=== PATIENT | male | born 1995 | race Caucasian/White ===

== ENCOUNTER 2017-05-12 20:12 | Emergency (ER) | payer MEDICAID ==
[2017-05-12 20:20] VITALS: BP 125/78; O2SAT 95
--- NOTE | 2017-05-12 20:33 | EDPHY ---
General Time Seen by Provider: 05/12/17 20:20 Narrative: CHIEF COMPLAINT: Right wrist injury HISTORY OF PRESENT ILLNESS: Patient complains of right wrist pain that started around 12:00 p.m. Today. 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 He did not know how heavy the bucket was a when he grabbed it, it twisted his right wrist. He says "I jacked it up." He complains of pain in the right wrist. Radiates up and down from the elbow to the hand. There was no direct trauma or fall on the arm. No numbness or tingling. No weakness. No difficulty using the hand or wrist other than pain. No other associated complaints or modifying factors. Right-hand dominant. ESTABLISHED ORTHOPEDIST: None REVIEW OF SYSTEMS: Ten systems reviewed and are negative unless otherwise noted in the HPI PAST MEDICAL HISTORY: "Oral issues" PAST SURGICAL HISTORY: Denies any surgical history FAMILY HISTORY: Noncontributory EXAMINATION General Appearance: Alert, no distress Cardiovascular: Symmetric radial pulses 2+. Brisk cap refill on all 5 fingers of the right hand. Neurological: A&O, light sensation to the back of the hand is symmetric. Interossei strength symmetric. No wrist drop Skin: Warm and dry, no rash. No petechiae purpura. No ecchymosis. No abrasion, laceration Extremities: Tenderness of the right wrist circumferentially. There is tenderness in the right snuffbox. No tenderness of the right hand, fingers or right elbow. Range of motion is symmetric but with hesitancy and pain in the right wrist. Psychiatric: Mood and affect normal DIFFERENTIAL DIAGNOSES: Including but not limited to wrist sprain, wrist strain, wrist fracture, forearm sprain, forearm strain MDM: 8:25 p.m. Acute right wrist strain from twisting mechanism injury. X-ray of the wrist is currently being performed. He is neurovascular intact distally. No signs of trauma elsewhere. Low clinical suspicion for fracture. He is neurovascular intact. 8:35 p.m. X-ray as read by me, without the aid of the radiologist reveals no fracture or dislocation. I have re-evaluated the patient and discussed this with him. 8:53 p.m. X-ray has been read as negative for acute fracture. Patient has already been placed in a thumb spica due to presence in the snuffbox. Low clinical suspicion for occult fracture but I did discuss the possibility of this. We discussed mandatory follow up with Orthopedics for definitive care and repeat x- ray. We discussed ice, anti-inflammatories and elevation. We discussed ED precautions. He is comfortable this plan and discharged home stable condition SUPERVISION: This patient was independently evaluated without direct involvement of or examination by the attending physician. ED Precautions: Worsening pain. Erythema, edema, cyanosis, pallor, paresthesia or anesthesia. - Diagnostics Imaging Results: Imaging Impressions Wrist X-Ray 05/12/17 20:23 Impression: Negative. - History Smoking Status: Light smoker - Objective Vital Signs: Initial Vital Signs Temperature (C) 97.9 F 05/12/17 20:18 Heart Rate 104 H 05/12/17 20:18 Respiratory Rate 16 05/12/17 20:18 Blood Pressure 125/78 H 05/12/17 20:18 O2 Sat (%) 95 05/12/17 20:18 O2 Delivery Mode Room Air Allergies/Adverse Reactions: cyclobenzaprine Allergy (Verified 05/12/17 20:18) Home Medications: Medication Instructions Recorded NK [No Known Home Meds] 05/12/17 Departure - Departure Disposition: Home, Routine, Self-Care Clinical Impression: Sprain of right wrist Qualifiers: Encounter type: initial encounter Qualified Code(s): S63.501A - Unspecified sprain of right wrist, initial encounter Condition: Good Instructions: Wrist Sprain (ED) Additional Instructions: 1. Aleve [id number], 1-2 pills by mouth every 12 hr for the next 5-7 days 2. Right wrist splint in place at all times when weight-bearing 3. Contact your [facility] for outpatient follow-up 4. Recommend ortho follow-up if no improvement in the next 5-7 days 5. The on-call primary care physician has been provided for you to establish as a new physician at your request 6. ED precautions as discussed Referrals: Noman León MD [Medical Doctor] - As per Instructions Warren Pinon DO [Doctor of Osteopathy] - As per Instructions (to establish as a new patient)
[2017-05-12 21:01] VITALS: PULSE 97; RESP 18; TEMP 98.1
== END 2017-05-12 21:01 | disposition home or self-care (01) ==
DX: S63.501A Unspecified sprain of right wrist, initial encounter (principal); F17.200 Nicotine dependence, unspecified, uncomplicated; X50.9XXA Other and unspecified overexertion or strenuous movements or postures, initial encounter; Y92.69 Other specified industrial and construction area as the place of occurrence of the external cause; Y99.8 Other external cause status; Y93.89 Activity, other specified

== ENCOUNTER 2017-08-05 09:23 | Emergency (ER) | payer MEDICAID, OTHER ==
[2017-08-05] MEDS ORDERED: IBUPROFEN 800 MG TAB PO ONE (10:01)
--- NOTE | 2017-08-05 10:13 | EDPHY ---
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 He denies any fall or direct blow to the neck. This occurred yesterday morning and he says he was able to work through the pain but when he woke up this morning and tried to go to work the pain was too severe prompting him to seek medical attention. Pain is worse when he tries to move his head particularly looking toward the left or looking up. He took aspirin yesterday with minimal relief. He feels some tingling around his shoulders but denies any distal tingling, numbness or weakness. He states he has a history of a prior back injury. REVIEW OF SYSTEMS: As in HPI, and all other systems reviewed and are negative Smoking Status: Light smoker Physical Exam: General Appearance: Alert, thin, well-developed well-nourished. Head: Normocephalic, atraumatic Eyes: Pupils equal and round, no pallor or injection. ENT, Mouth: Mucous membranes moist. Neck: Mild upper C-spine bony tenderness, limited range of motion due to pain and active resistance of passive range of motion Neurological: Awake, alert and oriented x 3, no pronator drift, normal gait, radial, median and ulnar nerve intact motor and sensory bilaterally Back: No bony tenderness, positive tenderness along upper and lower trapezius muscle with palpable spasm in the left lateral neck area Skin: Warm and dry, no rashes. Musculoskeletal: full range of motion of bilateral shoulders, see also above Extremities: symmetrical, full range of motion. Psychiatric: Patient has normal affect, there is no agitation. Constitutional: Initial Vital Signs Temperature (C) 36.6 C 08/05/17 09:34 Heart Rate 76 08/05/17 09:34 Respiratory Rate 18 08/05/17 09:34 Blood Pressure 174/88 H 08/05/17 09:34 O2 Sat (%) 97 08/05/17 09:34 O2 Delivery Mode Room Air Allergies/Adverse Reactions: cyclobenzaprine Allergy (Verified 05/12/17 20:18) Home Medications: Medication Instructions Recorded Meloxicam 7.5 mg PO DAILY #10 tablet 08/05/17 Methocarbamol [Robaxin 500 mg (*)] 1,000 mg PO QID PRN #30 tab 08/05/17 MDM/Departure - MDM Imaging: I viewed and interpreted images myself Medications Given: Discontinued Medications Ibuprofen (Motrin) 800 mg PO EDNOW ONE Stop: 08/05/17 10:02 Last Admin: 08/05/17 10:06 Dose: 800 mg ED Course/Re-evaluation: 22-year-old man presents with neck pain after twisting injury at work. Patient is neurologically intact. He does have some midline tenderness although mechanism is unusual for fracture. X-ray was obtained which showed loss of lordosis but no evidence of acute fracture. I suspect this is muscle spasm related. Patient is given ibuprofen with some improvement in the ED. Patient is discharged home with meloxicam and Robaxin. He states his allergy to Flexeril side makes him feel weird but no rash or anaphylaxis like symptoms. I am recommending no lifting greater than 10 lb for climbing scaffolding for the next 5 days and follow up with workmen's comp symptoms persist. - Depart Disposition: Home, Routine, Self-Care Clinical Impression: Cervical strain, acute Qualifiers: Encounter type: initial encounter Qualified Code(s): S16.1XXA - Strain of muscle, fascia and tendon at neck level, initial encounter Condition: Good Instructions: Acute Neck Pain (ED) Additional Instructions: You were seen by Dr. Catie Lancaster today. Take meloxicam once daily for pain and inflammation. May take Robaxin as needed as a muscle relaxant. Do not drive or operate heavy machinery while taking his medication. No heavy lifting (greater than 10 lb) or climbing ladders or scaffold pain until August 10. Return for any worsening or new concerns. Prescriptions: Meloxicam 7.5 mg PO DAILY #10 tablet Methocarbamol [Robaxin 500 mg (*)] 1,000 mg PO QID PRN #30 tab PRN Reason: neck spasm/pain Referrals: NONE *PRIMARY CARE P,. [Primary Care Provider] - As per Instructions
[2017-08-05 11:19] VITALS: BP 135/62
== END 2017-08-05 11:20 | disposition home or self-care (01) ==
LOC: CED 09:23
DX: S16.1XXA Strain of muscle, fascia and tendon at neck level, initial encounter (principal); X50.9XXA Other and unspecified overexertion or strenuous movements or postures, initial encounter; Y92.69 Other specified industrial and construction area as the place of occurrence of the external cause; Y99.0 Civilian activity done for income or pay; Y93.39 Activity, other involving climbing, rappelling and jumping off
CPT/HCPCS: 72040-PO